=== PATIENT | male | born 1965 | race Caucasian/White ===

== ENCOUNTER 2018-05-20 09:06 | Inpatient (IN) | payer OTHER ==
[2018-05-20 09:20] VITALS: BMI 25.3
--- NOTE | 2018-05-20 12:49 | HP ---
CIWA Score Nausea/Vomitin-No Nausea/No Vomiting Muscle Tremors: 1-None Visible, but [place] Anxiety: 4-Mod. Anxious/Guarded Agitation: 3 Paroxysmal Sweats: No Perspiration Orientation: 1-Uncertain about Date Tacttile Disturbances: 3-Moderate Itch/Numb/Burn Auditory Disturbances: 0-None Visual Disturbances: 0-None Headache: 0-None Present CIWA-Ar Total Score: 12 - Admission Criteria OASAS Guidelines: Admission for Medically Managed Detox: Requires at least one of the followin. CIWA greater than 12 2. Seizures within the past 24 hours 3. Delirium tremens within the past 24 hours 4. Hallucinations within the past 24 hours 5. Acute intervention needed for co occurring medical disorder 6. Acute intervention needed for co occurring psychiatric disorder 7. Severe withdrawal that cannot be handled at a lower level of care (continued vomiting, continued diarrhea, abnormal vital signs) requiring intravenous medication and/or fluids 8. Admission ROS [facility] Chief Complaint: ETOH WITHDRAWAL SX AND COCAINE DEPENDENCE. Allergies/Adverse Reactions: Allergies Allergy/AdvReac Type Severity Reaction Status Date / Time Fish Containing Products Allergy Severe Difficulty Verified 05/20/18 11:21 Breathing Penicillins Allergy Severe Difficulty Verified 05/20/18 11:21 Breathing History of Present Illness: PATIENT PRESENTS FOR ETOH WITHDRAWAL SX AND COCAINE DEPENDENCE. THIS IS PATIENTS FIRST ADMISSION TO DETOX. STATES HE HAS BEEN DRINKING SINCE AGE 25 AND DRINKS 72 OUNCES OF BEER DAILY. PATIENT ALSO SMOKES 60 DOLLARS OF CRACK/COCAINE DAILY. LAST TIME HE USED BOTH SUBSTANCES WAS YESTERDAY. LONGEST PERIOD OF SOBRIETY 4 YEARS. PATIENT DENIES SIGNIFICANT PMH AND PAST PSYCHIATRIC HX. DENIES BLACKOUTS, SEIZURES AND BINGE DRINKING. UDS +BRANT, BZO. PATIENT STATES HE WAS TREATED AT [facility] 2-3 WEEKS AGO FOR HIS ALCOHOL AND GIVEN MEDICATION. PATIENT SMOKES 5-7 CIG DAILY. DENIES SI/HI AND SUICIDE ATTEMPTS. Exam Limitations: No Limitations - Ebola screening Have you traveled outside of the country in the last 21 days: No Have you had contact with anyone from an Ebola affected area: No Have you been sick,other than usual withdrawal symptoms: No Do you have a fever: No - Review of Systems Constitutional: No Symptoms Reported EENT: reports: No Symptoms Reported Respiratory: reports: No Symptoms reported Cardiac: reports: No Symptoms Reported GI: reports: Poor Fluid Intake : reports: Frequency (DEPENDS ON ETOH INTAKE) Musculoskeletal: reports: Back Pain, Muscle Pain Integumentary: reports: No Symptoms Reported Neuro: reports: Numbness, Tingling Endocrine: reports: No Symptoms Reported Hematology: reports: No Symptoms Reported Psychiatric: reports: Anxious, Depressed, other (MISSED DATE BY ONE DAY, KNOWS MONTH AND YEAR) Patient History - Patient Medical History Hx Anemia: No Hx Asthma: No Hx Chronic Obstructive Pulmonary Disease (COPD): No Hx Cancer: No Hx Cardiac Disorders: No Hx Congestive Heart Failure: No Hx Hypertension: No Hx Hypercholesterolemia: No Hx Pacemaker: No HX Cerebrovascular Accident: No Hx Seizures: No Hx Dementia: No Hx Diabetes: No Hx Gastrointestinal Disorders: No Hx Liver Disease: No Hx Genitourinary Disorders: No Hx Sexually Transmitted Disorders: No Hx Renal Disease (ESRD): No Hx Thyroid Disease: No Hx Human Immunodeficiency Virus (HIV): No Hx Hepatitis C: No Hx Depression: No Hx Suicide Attempt: No Hx Bipolar Disorder: No Hx Schizophrenia: No - Patient Surgical History Past Surgical History: Yes Other Surgical History: Bilateral inguinal hernia repairs at age 6 yrs old. Anesthesia Reaction: No - PPD History Previous Implant?: Yes Documented Results: Negative w/o proof Implanted On Prior [facility] Admission?: No PPD to be Administered?: Yes - Smoking Cessation Smoking history: Current every day smoker Have you smoked in the past 12 months: Yes Aproximately how many cigarettes per day: 6 Hx Chewing Tobacco Use: No Initiated information on smoking cessation: Yes 'Breaking Loose' booklet given: 05/20/18 - Substance & Tx. History Hx Alcohol Use: Yes Hx Substance Use: Yes Substance Use Type: Alcohol, Cocaine Hx Substance Use Treatment: No - Substances Abused Alcohol Route: Oral Frequency: Daily Amount used: 2 24 oz cans beer Age of first use: 24 Date of Last Use: 05/19/18 Cocaine Route: Smoking Frequency: Daily Amount used: $60 Age of first use: 21 Date of Last Use: 05/19/18 Family Disease History - Family Disease History Family History: Denies Admission Physical Exam BHS - Vital Signs Vital Signs: Vital Signs - 24 hr 05/20/18 09:18 Temperature 95.7 F L Pulse Rate 65 Respiratory 18 Rate Blood Pressure 130/72 - Physical General Appearance: Yes: Nourished, Appropriately Dressed, Tremorous, Anxious HEENTM: Yes: EOMI, Hearing grossly Normal, Normal ENT Inspection, Normocephalic , Normal Voice, FAWN, Pharynx Normal Respiratory: Yes: Chest Non-Tender, Lungs Clear, Normal Breath Sounds, No Respiratory Distress, No Accessory Muscle Use Neck: Yes: No masses,lesions,Nodules, Supple Breast: Yes: Breast Exam Deferred Cardiology: Yes: Regular Rhythm, Regular Rate, S1, S2 Abdominal: Yes: Normal Bowel Sounds, Non Tender, Flat, Soft Genitourinary: Yes: Frequency Back: Yes: Muscle Spasm Musculoskeletal: Yes: full range of Motion, Gait Steady, Back pain Extremities: Yes: Normal Range of Motion, Non-Tender, Tremors (MILDLY FELT), Swelling, Other (REPORTS DRY CALLOUSES TO SIDE/BOTTOM ASPECT OF BOTH FEET) Neurological: Yes: pharmacy assistant II-XII NML intact, Fully Oriented, Alert, Motor Strength 5/5, Normal Response, Other (ANXIOUS) Integumentary: Yes: Normal Color, Dry, Warm Lymphatic: Yes: Within Normal Limits - Diagnostic (1) Alcohol dependence with uncomplicated withdrawal Current Visit: Yes Status: Acute (2) Cocaine dependence Current Visit: Yes Status: Chronic Qualifiers: Substance use status: uncomplicated Qualified Code(s): F14.20 - Cocaine dependence, uncomplicated (3) Tobacco use disorder Current Visit: Yes Status: Chronic Cleared for Admission [facility] - Detox or Rehab [facility] Level of Care: Medically Managed Detox Regimen/Protocol: Librium [facility] Breath Alcohol Content Breath Alcohol Content: 0 Urine Drug Screen - Results Drug Screen Negative: No Urine Drug Screen Results: BRANT-Cocaine, BZO-Benzodiazepines
[2018-05-20] MEDS ORDERED: LOPERAMIDE HCL 2 MG CAPSULE PO PRN (12:52)
[2018-05-20] MEDS ORDERED: MAG HYDROX/AL HYDROX/SIMETH 30 ML UNIT-DOSE CUP PO PRN (12:52)
[2018-05-20] MEDS ORDERED: P-EPHED 60MG/TRIPROLIDI 2.5MG TABLET PO PRN (12:52)
[2018-05-20] MEDS ORDERED: ACETAMINOPHEN 325 MG TABLET (FP) PO PRN (12:52)
[2018-05-20] MEDS ORDERED: MAGNESIUM CITRATE 300 ML BOTTLE PO PRN (12:52)
[2018-05-20] MEDS ORDERED: MENTHOL/PHENOL 1 EACH UD MM PRN (12:52)
[2018-05-20] MEDS ORDERED: guaiFENesin/D-METHORPHAN HB 10 ML UNIT-DOSE CUPS PO PRN (12:52)
[2018-05-20] MEDS ORDERED: MAGNESIUM HYDROX 2400MG/30ML ORAL SUSPENSION 30 ML CUP PO PRN (12:52)
[2018-05-20] MEDS ORDERED: hydrOXYzine PAMOATE 50 MG CAPSULE (FP) PO PRN (12:52)
[2018-05-20] MEDS ORDERED: NICOTINE POLACRILEX 2 MG GUM BUC PRN (12:52)
[2018-05-20] MEDS ORDERED: chlordiazePOXIDE HCL 25 MG CAPSULE PO PRN (12:53)
[2018-05-20] MEDS ORDERED: METHADONE HCL 10 MG TABLET (FOR DETOX USE ONLY) PO ONE ×2 (14:40→23:00)
[2018-05-20] MEDS ORDERED: NICOTINE 14 MG/24 HOURS TOPICAL PATCH TD SCH (16:00)
[2018-05-20] MEDS ORDERED: NICOTINE 14 MG/24 HOURS TOPICAL PATCH TD ONE (16:15)
[2018-05-20] MEDS: chlordiazePOXIDE HCL 25 MG CAPSULE PO SCH ×2 (18:44→22:32)
[2018-05-20] MEDS ORDERED: MELATONIN 5 MG TABLETS PO PRN (22:00)
[2018-05-20] MEDS: THIAMINE HCL 100 MG TABLET (FP) PO SCH (22:32)
[2018-05-21] MEDS: chlordiazePOXIDE HCL 25 MG CAPSULE PO SCH ×4 (05:54→22:29)
[2018-05-21] MEDS ORDERED: METHADONE HCL 10 MG TABLET (FOR DETOX USE ONLY) PO SCH (10:00)
[2018-05-21] MEDS: PRENATAL VITAMINS W/ FOLIC ACID TABLET (FP) PO SCH (10:40)
[2018-05-21] MEDS: NICOTINE 14 MG/24 HOURS TOPICAL PATCH TD SCH (10:42)
[2018-05-21 10:48] LABS: HEMATOCRIT 42.2 % (35.4-49); HEMOGLOBIN 14.1 GM/dL (11.7-16.9); MCH 30.4 pg (25.7-33.7); MCHC 33.4 g/dl (32.0-35.9); MEAN CELL VOLUME 91.2 fl (80-96); PLATELET COUNT 250 K/MM3 (134-434); RBC 4.63 M/mm3 (4.00-5.60); WHITE BLOOD COUNT 8.1 K/mm3 (4.0-10.0)
[2018-05-21 11:06] LABS: ALK PHOS 90 U/L (45-117); ANION GAP 6 MMOL/L (8-16); BILIRUBIN,TOTAL 0.3 mg/dL (0.2-1); BLOOD UREA NITROGEN 24 mg/dL (7-18); CALCIUM 9.1 mg/dL (8.5-10.1); CHLORIDE 107 mmol/L (98-107); CO2 28 mmol/L (21-32); CREATININE 0.8 mg/dL (0.55-1.3); GLUCOSE,RANDOM 93 mg/dL (74-106); POTASSIUM 4.5 mmol/L (3.5-5.1); SGOT/AST 30 U/L (15-37); SGPT/ALT 77 U/L (13-61); SODIUM 141 mmol/L (136-145)
[2018-05-21] MEDS ORDERED: FLU VACCINE QUAD 60 MCG/0.5 ML (MDV 18-19) IM ONE (12:00)
[2018-05-21 12:05] LABS: URINE APPEARANCE CLEAR; URINE BILIRUBIN NEGATIVE (<2.0 mg/dL); URINE COLOR YELLOW; URINE GLUCOSE (UA) NEGATIVE (NEGATIVE); URINE KETONE NEGATIVE (NEGATIVE); URINE LEUK ESTERASE NEGATIVE (NEGATIVE); URINE NITRITE NEGATIVE (NEGATIVE); URINE PROTEIN NEGATIVE (NEGATIVE); URINE UROBILINOGEN NEGATIVE mg/dL (0.2-1.0)
--- NOTE | 2018-05-21 13:33 | PN ---
[facility] CIWA - CIWA Score Nausea/Vomitin-No Nausea/No Vomiting Muscle Tremors: 3 Anxiety: 0-No Anxiety, at Ease Agitation: 0-Normal Activity Paroxysmal Sweats: 3 Orientation: 0-Oriented Tacttile Disturbances: 3-Moderate Itch/Numb/Burn Auditory Disturbances: 2-Mild Harshness/Frighten Visual Disturbances: 1-Very Mild Sensitivity Headache: 0-None Present CIWA-Ar Total Score: 12 S Progress Note (SOAP) Subjective: Sweating, Itch, Tremors. Objective: PATIENT A & O X 3, OBSERVED AMBULATING ON UNIT. IN NO ACUTE DISTRESS. 05/21/18 13:34 Vital Signs Temperature 97.0 F L 05/21/18 13:25 Pulse Rate 59 L 05/21/18 13:25 Respiratory Rate 18 05/21/18 13:25 Blood Pressure 121/65 05/21/18 13:25 O2 Sat by Pulse Oximetry (%) Laboratory Tests 05/20/18 05/21/18 05/21/18 11:30 05:45 05:45 WBC 8.1 RBC 4.63 Hgb 14.1 Hct 42.2 MCV 91.2 MCH 30.4 MCHC 33.4 RDW 14.0 Plt Count 250 MPV 9.0 Sodium 141 Potassium 4.5 Chloride 107 Carbon Dioxide 28 Anion Gap 6 L BUN 24 H Creatinine 0.8 Creat Clearance w eGFR > 60 Random Glucose 93 Calcium 9.1 Total Bilirubin 0.3 AST 30 ALT 77 H Alkaline Phosphatase 90 Total Protein 7.0 Albumin 4.0 Urine Color Urine Appearance Urine pH Ur Specific [place] Urine Protein Urine Glucose (UA) Urine Ketones Urine Blood Urine Nitrite Urine Bilirubin Urine Urobilinogen Ur Leukocyte Esterase RPR Titer HIV 1&2 Antibody Screen Negative HIV P24 Antigen Negative 05/21/18 05/21/18 05:45 08:00 WBC RBC Hgb Hct MCV MCH MCHC RDW Plt Count MPV Sodium Potassium Chloride Carbon Dioxide Anion Gap BUN Creatinine Creat Clearance w eGFR Random Glucose Calcium Total Bilirubin AST ALT Alkaline Phosphatase Total Protein Albumin Urine Color Yellow Urine Appearance Clear Urine pH 5.0 Ur Specific [place] 1.024 Urine Protein Negative Urine Glucose (UA) Negative Urine Ketones Negative Urine Blood Negative Urine Nitrite Negative Urine Bilirubin Negative Urine Urobilinogen Negative Ur Leukocyte Esterase Negative RPR Titer Nonreactive HIV 1&2 Antibody Screen HIV P24 Antigen LABS NOTED. Assessment: 05/21/18 13:35 WITHDRAWAL SYMPTOMS. Plan: CONTINUE DETOX. INCREASE DAILY PO FLUID INTAKE.
--- NOTE | 2018-05-21 15:52 | EKG ---
Test Reason : Blood Pressure : / mmHG Vent. Rate : 049 BPM Atrial Rate : 049 BPM P-R Int : 190 ms QRS Dur : 124 ms QT Int : 452 ms P-R-T Axes : 080 080 070 degrees QTc Int : 408 ms POOR DATA QUALITY, INTERPRETATION MAY BE ADVERSELY AFFECTED SINUS BRADYCARDIA LEFT VENTRICULAR HYPERTROPHY WITH QRS WIDENING ABNORMAL ECG NO PREVIOUS ECGS AVAILABLE Confirmed by Agustin Patino ([id number]) on 05/21/2018 3:51:52 PM Referred By: Confirmed By:Agustin Patino
[2018-05-21] MEDS: AMMONIUM LACTATE 12% LOTION 225 GM BOTTLE TP SCH (17:13)
[2018-05-21] MEDS: THIAMINE HCL 100 MG TABLET (FP) PO SCH (22:29)
[2018-05-22] MEDS: chlordiazePOXIDE HCL 25 MG CAPSULE PO SCH ×2 (06:19→10:39)
[2018-05-22] MEDS ORDERED: METHADONE HCL 5 MG TABLET (FOR DETOX USE ONLY) PO SCH (10:00)
[2018-05-22] MEDS: NICOTINE 14 MG/24 HOURS TOPICAL PATCH TD SCH (10:39)
[2018-05-22] MEDS: PRENATAL VITAMINS W/ FOLIC ACID TABLET (FP) PO SCH (10:39)
[2018-05-22] MEDS: AMMONIUM LACTATE 12% LOTION 225 GM BOTTLE TP SCH (10:39)
[2018-05-22] MEDS: IBUPROFEN 400 MG TABLET (FP) PO PRN (15:52)
--- NOTE | 2018-05-22 15:53 | PN ---
S CIWA - CIWA Score Nausea/Vomitin-Mild Nausea/No Vomiting Muscle Tremors: 1-None Visible, but [place] Anxiety: 1-Mildly Anxious Agitation: 1-Slight > Activity Paroxysmal Sweats: No Perspiration Orientation: 0-Oriented Tacttile Disturbances: 0-None Auditory Disturbances: 0-None Visual Disturbances: 0-None Headache: 0-None Present CIWA-Ar Total Score: 4 BHS Progress Note (SOAP) Subjective: pt states doing OK, occ gets muscle spasm. O: Vital Signs - 24 hr 05/21/18 05/21/18 05/22/18 17:47 20:56 03:30 Temperature 97.7 F 96.8 F L Pulse Rate 56 L 58 L Respiratory 18 20 18 Rate Blood Pressure 131/67 116/67 05/22/18 05/22/18 05/22/18 08:07 09:15 13:43 Temperature 97.7 F 98.2 F 97.3 F L Pulse Rate 53 L 61 66 Respiratory 18 20 18 Rate Blood Pressure 130/74 131/62 117/74 Laboratory Tests 05/20/18 05/21/18 05/21/18 11:30 05:45 05:45 WBC 8.1 RBC 4.63 Hgb 14.1 Hct 42.2 MCV 91.2 MCH 30.4 MCHC 33.4 RDW 14.0 Plt Count 250 MPV 9.0 Sodium 141 Potassium 4.5 Chloride 107 Carbon Dioxide 28 Anion Gap 6 L BUN 24 H Creatinine 0.8 Creat Clearance w eGFR > 60 Random Glucose 93 Calcium 9.1 Total Bilirubin 0.3 AST 30 ALT 77 H Alkaline Phosphatase 90 Total Protein 7.0 Albumin 4.0 Urine Color Urine Appearance Urine pH Ur Specific [place] Urine Protein Urine Glucose (UA) Urine Ketones Urine Blood Urine Nitrite Urine Bilirubin Urine Urobilinogen Ur Leukocyte Esterase RPR Titer HIV 1&2 Antibody Screen Negative HIV P24 Antigen Negative 05/21/18 05/21/18 05:45 08:00 WBC RBC Hgb Hct MCV MCH MCHC RDW Plt Count MPV Sodium Potassium Chloride Carbon Dioxide Anion Gap BUN Creatinine Creat Clearance w eGFR Random Glucose Calcium Total Bilirubin AST ALT Alkaline Phosphatase Total Protein Albumin Urine Color Yellow Urine Appearance Clear Urine pH 5.0 Ur Specific [place] 1.024 Urine Protein Negative Urine Glucose (UA) Negative Urine Ketones Negative Urine Blood Negative Urine Nitrite Negative Urine Bilirubin Negative Urine Urobilinogen Negative Ur Leukocyte Esterase Negative RPR Titer Nonreactive HIV 1&2 Antibody Screen HIV P24 Antigen a/p: alcohol detox protocol- doing well, prn meds for symptom relief
[2018-05-22] MEDS: chlordiazePOXIDE 5 MG CAPSULE PO SCH ×2 (18:16→22:19)
[2018-05-22] MEDS: THIAMINE HCL 100 MG TABLET (FP) PO SCH (22:18)
[2018-05-23] MEDS: IBUPROFEN 400 MG TABLET (FP) PO PRN ×3 (02:50→21:06)
[2018-05-23] MEDS: chlordiazePOXIDE 5 MG CAPSULE PO SCH ×2 (05:27→11:04)
[2018-05-23] MEDS: NICOTINE 14 MG/24 HOURS TOPICAL PATCH TD SCH (11:03)
[2018-05-23] MEDS: PRENATAL VITAMINS W/ FOLIC ACID TABLET (FP) PO SCH (11:04)
[2018-05-23] MEDS: AMMONIUM LACTATE 12% LOTION 225 GM BOTTLE TP SCH (12:10)
[2018-05-23] MEDS ORDERED: CYCLOBENZAPRINE HCL 10 MG TABLET (FP) PO PRN (13:59)
--- NOTE | 2018-05-23 16:35 | PN ---
BHS Progress Note (SOAP) Subjective: Body Aches, Sweating, Interrupted Sleep. Objective: PATIENT A & O X 3, OBSERVED AMBULATING ON UNIT. IN NO ACUTE DISTRESS. 05/23/18 16:33 Vital Signs Temperature 97.5 F L 05/23/18 13:22 Pulse Rate 53 L 05/23/18 13:22 Respiratory Rate 05/23/18 13:22 Blood Pressure 136/65 05/23/18 13:22 O2 Sat by Pulse Oximetry (%) Laboratory Tests 05/20/18 05/21/18 05/21/18 11:30 05:45 05:45 WBC 8.1 RBC 4.63 Hgb 14.1 Hct 42.2 MCV 91.2 MCH 30.4 MCHC 33.4 RDW 14.0 Plt Count 250 MPV 9.0 Sodium 141 Potassium 4.5 Chloride 107 Carbon Dioxide 28 Anion Gap 6 L BUN 24 H Creatinine 0.8 Creat Clearance w eGFR > 60 Random Glucose 93 Calcium 9.1 Total Bilirubin 0.3 AST 30 ALT 77 H Alkaline Phosphatase 90 Total Protein 7.0 Albumin 4.0 Urine Color Urine Appearance Urine pH Ur Specific [place] Urine Protein Urine Glucose (UA) Urine Ketones Urine Blood Urine Nitrite Urine Bilirubin Urine Urobilinogen Ur Leukocyte Esterase RPR Titer HIV 1&2 Antibody Screen Negative HIV P24 Antigen Negative 05/21/18 05/21/18 05:45 08:00 WBC RBC Hgb Hct MCV MCH MCHC RDW Plt Count MPV Sodium Potassium Chloride Carbon Dioxide Anion Gap BUN Creatinine Creat Clearance w eGFR Random Glucose Calcium Total Bilirubin AST ALT Alkaline Phosphatase Total Protein Albumin Urine Color Yellow Urine Appearance Clear Urine pH 5.0 Ur Specific [place] 1.024 Urine Protein Negative Urine Glucose (UA) Negative Urine Ketones Negative Urine Blood Negative Urine Nitrite Negative Urine Bilirubin Negative Urine Urobilinogen Negative Ur Leukocyte Esterase Negative RPR Titer Nonreactive HIV 1&2 Antibody Screen HIV P24 Antigen LABS NOTED. Assessment: 05/23/18 16:34 WITHDRAWAL SYMPTOMS. Plan: CONTINUE DETOX.
[2018-05-23] MEDS: chlordiazePOXIDE HCL 10 MG CAPSULE PO SCH ×2 (17:42→22:02)
[2018-05-23] MEDS: THIAMINE HCL 100 MG TABLET (FP) PO SCH (22:02)
[2018-05-24] MEDS: chlordiazePOXIDE HCL 10 MG CAPSULE PO SCH (05:19)
--- NOTE | 2018-05-24 09:19 | DS ---
[facility] Detox Discharge Summary Admission Date: 05/20/18 Discharge Date: 05/24/18 - History Present History: Alcohol Dependence, Cocaine Dependence - Physical Exam Results Vital Signs: Vital Signs Temperature 96.8 F L 05/24/18 06:00 Pulse Rate 48 L 05/24/18 06:00 Respiratory Rate 18 05/24/18 06:30 Blood Pressure 100/55 L 05/24/18 06:00 O2 Sat by Pulse Oximetry (%) - Treatment Hospital Course: Detox Protocol Followed, Detoxed Safely, Responded well, Discharged Condition Good, Rehab Referral Accepted - Medication Discharge Medications: Ambulatory Orders NK [No Known Home Medication] 05/20/18 - Diagnosis (1) Alcohol dependence with uncomplicated withdrawal Current Visit: Yes Status: Chronic (2) Cocaine dependence Current Visit: Yes Status: Chronic Qualifiers: Substance use status: uncomplicated Qualified Code(s): F14.20 - Cocaine dependence, uncomplicated (3) Tobacco use disorder Current Visit: Yes Status: Chronic - AMA Did Patient Leave Against Medical Advice: No (pt declined rehab. outpatient rehab as second referral)
[2018-05-24 09:49] VITALS: BP 115/63; PULSE 65; TEMP 97.7
[2018-05-24] MEDS ORDERED: METHADONE HCL 10 MG TABLET (FOR DETOX USE ONLY) PO SCH (10:00)
[2018-05-25] MEDS ORDERED: METHADONE HCL 5 MG TABLET (FOR DETOX USE ONLY) PO SCH (06:00)
== END 2018-05-24 08:58 | disposition home or self-care (01) | DRG 774 ==
LOC: YASAS 09:06 → Y6N 13:36
PROVIDERS: ADMIT Neuromusculoskeletal Medicine & OMM; ATTEND Neuromusculoskeletal Medicine & OMM
PROC: HZ2ZZZZ Detoxification Services for Substance Abuse Treatment (ICD-10-PCS; principal; 2018-05-20)
DX: F10.230 Alcohol dependence with withdrawal, uncomplicated (principal); F14.20 Cocaine dependence, uncomplicated; F17.210 Nicotine dependence, cigarettes, uncomplicated; Z88.0 Allergy status to penicillin; Z91.013 Allergy to seafood; Z59.0 Homelessness
CPT/HCPCS: 36415; 80053; 81003; 85027; 86593; 87389; 90688; 93005; 93010; G0008